=== PATIENT | male | born 1960 | race Caucasian/White ===

== ENCOUNTER 2018-03-21 10:48 | Day surgery (SDC) | payer OTHER ==
[~2018-03-21 10:48] MED LIST: CEFAZOLIN 1 GM INJ; LACTATED RINGER'S 1,000 ML IV*; ONDANSETRON 4 MG INJ
[2018-03-21] MEDS ORDERED: CEFAZOLIN 1 GM/50 ML (PMX) 50 ML IVPB (11:00)
[2018-03-21] MEDS: LACTATED RINGER'S 1,000 ML IV* (12:17)
[2018-03-21] MEDS ORDERED: FENTAnyl 50 MCG/ML VIAL (13:48)
[2018-03-21] MEDS ORDERED: PROPOFOL 20 ML (13:49)
[2018-03-21] MEDS ORDERED: MIDAZOLAM 1 MG/ML 2 ML INJ (13:49)
[2018-03-21] MEDS ORDERED: LIDOCAINE 2% (SDV) 5 ML INJ (13:52)
[2018-03-21] MEDS ORDERED: METOCLOPRAMIDE 10 MG INJ (13:52)
[2018-03-21] MEDS ORDERED: ROPIVACAINE 0.5 % 30 ML VIAL (14:00)
[2018-03-21] MEDS ORDERED: hydrALAzine 20 MG INJ IV (16:30)
[2018-03-21] MEDS ORDERED: DIPHENHYDRAMINE 50 MG INJ IV (16:30)
[2018-03-21] MEDS ORDERED: ONDANSETRON 4 MG INJ IV (16:30)
[2018-03-21] MEDS ORDERED: IPRATROPIUM (NEB) 0.5 MG/2.5 ML AMP HHN (16:30)
[2018-03-21] MEDS ORDERED: MEPERIDINE 25 MG INJ IV (16:30)
[2018-03-21] MEDS ORDERED: HYDROmorphONE 1 MG/5 ML IV SYRINGE IV ×2 (16:30)
[2018-03-21] MEDS ORDERED: LABETALOL HCL 20MG INJ IV (16:30)
[2018-03-21] MEDS ORDERED: FENTAnyl 50 MCG/ML VIAL IV ×2 (16:30)
== END 2018-03-21 17:45 | disposition home or self-care (01) ==
LOC: SDS 10:48
DX: T84.84XA Pain due to internal orthopedic prosthetic devices, implants and grafts, initial encounter (principal); Y79.3 Surgical instruments, materials and orthopedic devices (including sutures) associated with adverse incidents; S63.591D Other specified sprain of right wrist, subsequent encounter; X58.XXXD Exposure to other specified factors, subsequent encounter; E11.9 Type 2 diabetes mellitus without complications; E78.00 Pure hypercholesterolemia, unspecified
CPT/HCPCS: 20680; 73090-RT; 82962; 88300